=== PATIENT | male | born 1990 | race Caucasian/White ===

== ENCOUNTER 2017-08-24 14:35 | Emergency (ER) | payer SELFPAY ==
[2017-08-24] MEDS ORDERED: Sodium Chloride 0.9% 1,000 ML IV ONE (15:07)
[2017-08-24] MEDS ORDERED: Ondansetron 4 MG/2 ML SDV IVPUSH ONE (15:07)
[2017-08-24 15:43] LABS: CHLORIDE,CL 103 mmol/L (98-107); SODIUM,NA 137 mmol/L (136-148)
[2017-08-24] MEDS ORDERED: Iopamidol 755 Mg/ML 100 ML Bottle IVPUSH ONE (16:39)
--- NOTE | 2017-08-24 16:49 | EDM.PDOC ---
ED HPI GENERAL MEDICAL PROBLEM - General Chief Complaint: Abdominal Pain Stated Complaint: APPENDIX AND GALLBALADDER PAIN Time Seen by Provider: 08/24/17 15:07 Source of Information: Reports: Patient History Limitations: Reports: No Limitations - History of Present Illness INITIAL COMMENTS - FREE TEXT/NARRATIVE: HISTORY AND PHYSICAL: History of present illness: Patient is a 26-year-old fe/male who presents to the emergency room with complaints of right-sided abdominal pain, nausea, and vomiting. Patient identifies as female and prefers to be called Ella (will refer to her, as "her") . She reports that she has had a burning type pain to the right upper quadrant. She is concerned that she has appendicitis or cholecystitis. Patient had previously done hormone therapy but has not taken any in the past 2 years. Review of systems: As per history of present illness and below otherwise all systems reviewed and negative. Past medical history: As per history of present illness and as reviewed below otherwise noncontributory. Surgical history: As per history of present illness and as reviewed below otherwise noncontributory. Social history: No reported history of drug or alcohol abuse. Family history: As per history of present illness and as reviewed below otherwise noncontributory. Physical exam: General: Well-developed and well-nourished 36-year-old fe/male. Alert and oriented. Nontoxic appearing and in no acute distress. HEENT: Atraumatic, normocephalic, pupils equal and reactive bilaterally, negative for conjunctival pallor or scleral icterus, mucous membranes moist, throat clear, neck supple, nontender, trachea midline. No drooling or trismus noted. No meningeal signs Lungs: Clear to auscultation, breath sounds equal bilaterally, chest nontender. Heart: S1S2, regular rate and rhythm without overt murmur Abdomen: Soft, nondistended, tenderness with palpation to the right upper quadrant and right lower quadrant. Negative for masses or hepatosplenomegaly. Negative for costovertebral tenderness. Pelvis: Stable nontender. Genitourinary: Deferred. Rectal: Deferred. Skin: Intact, warm, dry. No lesions or rashes noted. Extremities: Atraumatic, moves all extremities per self without difficulty or deficits, negative for cords or calf pain. Neurovascular unremarkable. Neuro: Awake, alert, oriented. Cranial nerves II through XII unremarkable. Cerebellum unremarkable. Motor and sensory unremarkable throughout. Exam nonfocal. Notes: Lab work is unremarkable, he cites a urinary tract infection. A urine culture has been added. CT of the abdomen and pelvis show no acute findings which would suggest appendicitis or cholecystitis. Did ask patient if there is any concerns of STDs. She states that she just had a full screening on Saturday and everything returned back normal. Macrobid and prescribed Zofran for nausea. Encouraged her to follow up with her primary care provider in the next few days. She voices understanding and is agreeable to plan of care. She denies any further questions at this time. Diagnostics: CBC, CMP, UA, CT abdomen and pelvis Therapeutics: IV fluid Impression: UTI Plan: 1. Please take the antibiotic as prescribed. Increase your oral fluids. 2. Tylenol and/or ibuprofen as needed for pain management. You may use Zofran as needed for nausea management. 3. Follow-up with your primary caregiver on Saturday. Return to the ED as needed and as discussed. Definitive disposition and diagnosis as appropriate pending reevaluation and review of above. Duration: Day(s): Location: Reports: Abdomen - Related Data Allergies Allergy/AdvReac Type Severity Reaction Status Date / Time No Known Allergies Allergy Verified 08/24/17 17:50 Home Meds: Home Meds . [No Known Home Meds] 08/24/17 [History] ED ROS GENERAL - Review of Systems Review Of Systems: ROS reveals no pertinent complaints other than HPI. ED EXAM, GI/ABD - Physical Exam Exam: See Below (See dictation) Course - Orders/Labs/Meds Orders: Active Orders 24 hr Category Date Time Status Abdomen Pelvis w Cont [CT] Stat Exams 08/24/17 16:02 Ordered CULTURE URINE [RM] Stat Lab 08/24/17 17:40 Ordered UA W/MICROSCOPIC [URIN] Stat Lab 08/24/17 16:33 Ordered Labs: Laboratory Tests 08/24/17 08/24/17 08/24/17 Range/Units 15:16 15:16 16:33 WBC 7.00 (4.0-11.0) K/uL RBC 4.99 (4.50-5.90) M/uL Hgb 15.1 (13.0-17.0) g/dL Hct 45.2 (38.0-50.0) % MCV 90.6 (80.0-98.0) fL MCH 30.3 (27.0-32.0) pg MCHC 33.4 (31.0-37.0) g/dL RDW Std Deviation 44.8 (28.0-62.0) fl RDW Coeff of Arline 14 (11.0-15.0) % Plt Count 248 (150-400) K/uL MPV 9.80 (7.40-12.00) fL Neut % (Auto) 50.6 (48.0-80.0) % Lymph % (Auto) 33.4 (16.0-40.0) % [place] % (Auto) 11.3 (0.0-15.0) % Eos % (Auto) 4.0 (0.0-7.0) % Baso % (Auto) 0.7 (0.0-1.5) % Neut # (Auto) 3.5 (1.4-5.7) K/uL Lymph # (Auto) 2.3 (0.6-2.4) K/uL [place] # (Auto) 0.8 (0.0-0.8) K/uL Eos # (Auto) 0.3 (0.0-0.7) K/uL Baso # (Auto) 0.1 (0.0-0.1) K/uL Nucleated RBC % 0.0 /100WBC Nucleated RBCs # 0 K/uL Sodium 137 (136-148) mmol/L Potassium 4.2 (3.5-5.1) mmol/L Chloride 103 (98-107) mmol/L Carbon Dioxide 29.0 (21.0-32.0) mmol/L BUN 21 H (7.0-18.0) mg/dL Creatinine 1.0 (0.8-1.3) mg/dL Est Cr Clr Drug Dosing TNP Estimated GFR (MDRD) > 60.0 ml/min Glucose 90 (74-106) mg/dL Calcium 9.1 (8.5-10.1) mg/dL Total Bilirubin 0.6 (0.2-1.0) mg/dL AST 43 H (15-37) IU/L ALT 192 H (14-63) IU/L Alkaline Phosphatase 91 (46-116) U/L Total Protein 8.2 (6.4-8.2) g/dL Albumin 4.2 (3.4-5.0) g/dL Globulin 4.0 H (2.0-3.5) g/dL Albumin/Globulin Ratio 1.1 L (1.3-2.8) Urine Color YELLOW Urine Appearance CLEAR Urine pH 7.5 (5.0-8.0) Ur Specific [place] 1.010 (1.001-1.035) Urine Protein NEGATIVE (NEGATIVE) mg/dL Urine Glucose (UA) NEGATIVE (NEGATIVE) mg/dL Urine Ketones NEGATIVE (NEGATIVE) mg/dL Urine Occult Blood NEGATIVE (NEGATIVE) Urine Nitrite NEGATIVE (NEGATIVE) Urine Bilirubin NEGATIVE (NEGATIVE) Urine Urobilinogen 0.2 (<2.0) EU/dL Ur Leukocyte Esterase NEGATIVE (NEGATIVE) Urine RBC 0-3 (0-2/HPF) Urine WBC 2-6 (0-5/HPF) Ur Squamous Epith Cells FEW Urine Bacteria FEW (NEGATIVE) Urine Mucus LIGHT (NONE-MOD) Meds: Medications Discontinued Medications Generic Name Dose Route Start Last Admin Trade Name Rakan PRN Reason Stop Dose Admin Sodium Chloride 1,000 mls @ 999 mls/hr 08/24/17 15:07 08/24/17 16:41 Normal Saline IV 08/24/17 16:07 999 mls/hr STAT ONE Administration Iopamidol 100 ml 08/24/17 16:39 08/24/17 16:40 Isovue-370 (76%) IVPUSH 08/24/17 16:40 100 ml ONETIME ONE Administration Ondansetron HCl 4 mg 08/24/17 15:07 08/24/17 16:44 Zofran IVPUSH 08/24/17 15:08 4 mg ONETIME ONE Administration Departure - Departure Time of Disposition: 17:41 Disposition: Home, Self-Care 01 Clinical Impression: UTI (urinary tract infection) Qualifiers: Urinary tract infection type: acute cystitis Hematuria presence: without hematuria Qualified Code(s): N30.00 - Acute cystitis without hematuria - Discharge Information Instructions: Urinary Tract Infection, Adult, [id number] Referrals: PCP,None [Primary Care Provider] - Forms: ED Department Discharge Additional Instructions: The following information is given to patients seen in the emergency department who are being discharged to home. This information is to outline your options for follow-up care. We provide all patients seen in our emergency department with a follow-up referral. The need for follow-up, as well as the timing and circumstances, are variable depending upon the specifics of your emergency department visit. If you don't have a primary care physician on staff, we will provide you with a referral. We always advise you to contact your personal physician following an emergency department visit to inform them of the circumstance of the visit and for follow-up with them and/or the need for any referrals to a consulting specialist. The emergency department will also refer you to a specialist when appropriate. This referral assures that you have the opportunity for follow-up care with a specialist. All of these measure are taken in an effort to provide you with optimal care, which includes your follow-up. Under all circumstances we always encourage you to contact your private physician who remains a resource for coordinating your care. When calling for follow-up care, please make the office aware that this follow-up is from your recent emergency room visit. If for any reason you are refused follow-up, please contact the [facility] Emergency Department at and asked to speak to the emergency department charge nurse. [facility] [address] [place] [address] 1. Please take the antibiotic as prescribed. Increase your oral fluids. 2. Tylenol and/or ibuprofen as needed for pain management. You may use Zofran as needed for nausea management. 3. Follow-up with your primary caregiver on Saturday. Return to the ED as needed and as discussed. - My Orders Last 24 Hours: My Active Orders 08/24/17 16:02 Abdomen Pelvis w Cont [CT] Stat 08/24/17 16:33 UA W/MICROSCOPIC [URIN] Stat 08/24/17 17:40 CULTURE URINE [RM] Stat - Assessment/Plan Last 24 Hours: My Active Orders 08/24/17 16:02 Abdomen Pelvis w Cont [CT] Stat 08/24/17 16:33 UA W/MICROSCOPIC [URIN] Stat 08/24/17 17:40 CULTURE URINE [RM] Stat
--- NOTE | 2017-08-26 14:07 | CT ---
EXAM DATE: 08/24/17 PATIENT'S AGE: 26 Patient: MAHOGANY LIU Facility: [place], [place] Site . Site : [id number] Study: CT Abdomen w/ cont [id number]/[id number] 4:42:19 PM Ordering Physician: Doctor Greenfield Final Report: HISTORY: Right lower quadrant abdominal pain. TECHNIQUE: Intravenous contrast enhanced CT of the abdomen and pelvis. 100 mL of Isovue- 370 intravenous contrast administered. COMPARISON: No prior. FINDINGS: No focal liver parenchymal abnormality. No biliary ductal dilatation. Gallbladder does not appear overly distended. Splenomegaly with the spleen measuring 15.4 cm transverse long dimension. Adrenal glands normal. No focal pancreatic abnormality or peripancreatic inflammatory change. Symmetric nephrograms. No renal mass or hydronephrosis. No obstructive urinary calculus. Urinary bladder is not optimally evaluated by CT but appears grossly unremarkable. - No small bowel obstruction. The appendix is normal. No diverticulitis or definite colitis. No abdominal fluid collection. No free air. No adenopathy. No abdominal aortic aneurysm. There may be a varicocele on the left. - No acute bony abnormality. - No infiltrate within the lung bases or pleural effusion. IMPRESSION: 1. No specific identified cause of patient`s pain. 2. The appendix is normal. 3. Mild splenomegaly. 4. Potential left-sided varicocele. Dictated by Ryan Burks MD @ 08/24/2017 5:09:26 PM Please note that all CT scans at this facility use dose modulation, iterative reconstruction, and/or weight-based dosing when appropriate to reduce radiation dose to as low as reasonably achievable. Dictated by: Ryan Burks MD @ 08/24/2017 17:09:29 (Electronic Signature) Report Signed by Proxy. [facility]
== END 2017-08-24 18:20 | disposition home or self-care (01) ==
LOC: MW.ED 14:35
DX: N30.00 Acute cystitis without hematuria (principal)
CPT/HCPCS: 36415; 74177; 80053; 81001; 85025; 87086; 96361; 96374; 99284; J2405; J7040; Q9967